=== PATIENT | male | born 1970 | race Caucasian/White ===

== ENCOUNTER 2018-11-26 11:58 | Emergency (ER) | payer OTHER ==
[2018-11-26] MEDS ORDERED: TETRACAINE HCL 0.5% OPH SOLN 4 ML OS ONE (13:02)
--- NOTE | 2018-11-26 13:23 | ER Document Report ---
HPI - HPI Time Seen by Provider: 11/26/18 12:50 Pain Level: 2 Notes: Patient is a 48-year-old male who presents to the emergency department with chief complaint of possible injury to his right eye. He states that he was working with a piece of metal cord when it flew back and struck him in the face just prior to arrival. Past Medical History - General Information source: Patient - Social History Smoking Status: Never Smoker Frequency of alcohol use: Occasional Drug Abuse: None Family History: Reviewed & Not Pertinent - Medical History Medical History: Negative - Past Medical History Cardiac Medical History: Denies: Hx Coronary Artery Disease, Hx Heart Attack, Hx Hypertension Pulmonary Medical History: Denies: Hx Asthma, Hx Bronchitis, Hx COPD, Hx Pneumonia Neurological Medical History: Denies: Hx Cerebrovascular Accident, Hx Seizures Musculoskeletal Medical History: Denies Hx Arthritis Surgical Hx: Negative Past Surgical History: Denies: Hx Pacemaker - Immunizations Immunizations up to date: Yes Vertical Provider Document - CONSTITUTIONAL Notes: PHYSICAL EXAMINATION: GENERAL: Well-appearing, well-nourished and in no acute distress. HEAD: Atraumatic, normocephalic. EYES: Pupils equal round extraocular movements intact, conjunctiva are normal. ENT: Nares patent NECK: Normal range of motion LUNGS: No respiratory distress Musculoskeletal: Normal range of motion NEUROLOGICAL: Normal speech, normal gait. PSYCH: Normal mood, normal affect. SKIN: Warm, Dry, normal turgor, no rashes or lesions noted. Superficial abrasion noted under right eye measuring approximately 2 cm. Course - Re-evaluation Re-evalutation: Superficial abrasion under right eye does not require any repair. Eye was examined using Flourescein stain and there is no evidence of corneal abrasion. Patient's visual acuity is 20/20 in each eye individually as well as both eyes together. Patient will be placed on antibiotic eyedrops prophylactically as the object that allegedly had his eye was a dirty piece of metal. Patient given strict ED return precautions. - Vital Signs Vital signs: Temp Pulse Resp BP Pulse Ox 98.0 F 73 16 135/83 H 97 11/26/18 12:36 11/26/18 12:36 11/26/18 12:36 11/26/18 12:36 11/26/18 12:36 Procedures - Eye Procedure Right Alcaine Drops Administered: Yes Fluorescein applied: Right Slit lamp used: No Discharge - Discharge Clinical Impression: Eye injury, non-penetrating Condition: Stable Disposition: HOME, SELF-CARE Additional Instructions: Eye Injury You have been evaluated for an eye injury or problem. At this time no serious, vision-threatening problem could be found. If an infection is suspected or to prevent an infection, antibiotics drops may be prescribed. Pain medication may be required. Don't drive or operate machinery until you have the use of both your eyes. Call the doctor or return at once if you develop severe pain, decreasing vision, eye swelling, or pus drainage. Please see the antibiotic eyedrops for the next 5-7 days to help prevent infection as the object that touched her eye was most likely contaminated. Please follow-up with an boiler room operator should you experience worsening of your vision or pain in your eye. If it is after hours please come see us immediately. Prescriptions: Polymyxin B Sulf/Trimethoprim [Polytrim Eye Drops] 1 drop OD Q3H 5 Days #10 ml Forms: Return to Work
[2018-11-26 13:40] VITALS: BP 118/83
== END 2018-11-26 13:40 | disposition home or self-care (01) ==
LOC: ER 11:58
DX: S05.90XA Unspecified injury of unspecified eye and orbit, initial encounter (principal); W20.8XXA Other cause of strike by thrown, projected or falling object, initial encounter; Y99.0 Civilian activity done for income or pay
CPT/HCPCS: 99283; J3490